=== PATIENT | female | born 1980 | race Caucasian/White ===

== ENCOUNTER 2021-06-21 17:56 | Emergency (ER) | payer OTHER ==
[2021-06-21 18:59] LABS: HEMOGLOBIN 13.2 gm/dl (12.3-15.3); RED BLOOD COUNT 4.41 M/UL (4.00-5.10); WHITE BLOOD COUNT 7.7 K/UL (4.5-11.0)
[2021-06-21 19:35] LABS: BUN/CREATININE RATIO 13 (0-10)
== END 2021-06-22 01:01 | disposition short-term general hospital (02) ==
LOC: ER1 17:56
PROVIDERS: Physician Assistant
DX: U07.1 COVID-19 (principal); N13.6 Pyonephrosis; Z87.442 Personal history of urinary calculi; D64.9 Anemia, unspecified; F17.210 Nicotine dependence, cigarettes, uncomplicated; Z88.0 Allergy status to penicillin; Z88.2 Allergy status to sulfonamides; R59.1 Generalized enlarged lymph nodes
CPT/HCPCS: 74018; 80053; 81001; 83605; 83690; 84703; 85025; 87040; 87077; 87086; 87186; 96374; 96375; 96376; 99285; J0696; J1885; J2270; J2405; J7030; U0002